=== PATIENT | female | born 1960 | race Caucasian/White ===

== ENCOUNTER 2023-02-26 13:58 | Outpatient (OUT) | payer OTHER, SELFPAY ==
--- NOTE | 2023-02-26 14:03 | XR_ITS ---
The [address] [address] Patient Name: DAVID LOZA MRN: [id number] date: 1960 Sex: F Assigned Patient Location: [facility] Current Patient Location: [facility] Accession/Order Number: [id number] Exam Date: 02/26/2023 14:15 Report Date: 02/26/2023 23:56 At the request of: JACKIE MALONE Procedure: XR hip RT min 2V EXAM: XR hip RT min 2V HISTORY: Right Hip Pain COMPARISON: None. TECHNIQUE: 2 views right hip FINDINGS: Status post right hip total arthroplasty without hardware complication. No acute fracture or aggressive osseous abnormality. Partially imaged left hip arthroplasty. Degenerative changes of the sacroiliac joints. XR/XR hip RT min 2V IMPRESSION: Status post right hip arthroplasty without hardware complication. No acute osseous abnormality. Electronically authenticated by: MARCI DIAS Date: 02/26/2023 23:56
--- NOTE | 2023-02-26 14:04 | XR_ITS ---
The [address] [address] Patient Name: DAVID LOZA MRN: [id number] date: 1960 Sex: F Assigned Patient Location: [facility] Current Patient Location: [facility] Accession/Order Number: [id number] Exam Date: 02/26/2023 14:15 Report Date: 02/26/2023 23:39 At the request of: JACKIE MALONE Procedure: XR knee RT 4V EXAM: XR knee RT 4V HISTORY: Right Knee Pain COMPARISON: None. TECHNIQUE: 4 views right knee FINDINGS: Diffuse osseous demineralization. Mild degenerative changes of the knee. No acute fracture or aggressive osseous abnormality. Small joint effusion. XR/XR knee RT 4V IMPRESSION: Mild degenerative changes of the right knee without acute osseous abnormality. Electronically authenticated by: MARCI DIAS Date: 02/26/2023 23:39
== END 2023-02-26 13:59 | disposition home or self-care (01) ==
LOC: RAD 13:58
PROVIDERS: PCP Family Medicine; Visit Provider Family Medicine
DX: M25.551 Pain in right hip (principal); M25.561 Pain in right knee
CPT/HCPCS: 73502; 73564

== ENCOUNTER 2023-04-07 17:38 | Emergency (ER) | payer OTHER, SELFPAY ==
[2023-04-07] VITALS (21 sets, daily range): BP systolic 155–156; BP diastolic 67–68; PULSE 102–117; RESP 17–62; O2SAT 98; BMI 39.8
--- NOTE | 2023-04-07 18:11 | ECG_ITS ---
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
--- NOTE | 2023-04-07 18:11 | ED.GENADUL1 ---
HPI - General Adult General Chief complaint: Chest Pain Stated complaint: Palpitations Time Seen by Provider: 04/07/23 18:06 Mode of arrival: walk-in Limitations: no limitations History of Present Illness HPI narrative: 62-year-old female presents for palpitations. It's been like this all day. Five days ago she started taking a decongestant, chlorpheniramine. No fever or vomiting. No diarrhea but she's had nasal congestion and that's why she's taking the decongestant. Related Data Allergies Allergy/AdvReac Type Severity Reaction Status Date / Time Sulfa (Sulfonamide Allergy Unknown Verified 04/07/23 17:52 Antibiotics) Review of Systems ROS Narrative A ten point review of systems is negative except as noted above. Ears, nose, mouth, and throat Reports: nasal congestion Exam Narrative Exam Narrative: Nurses note and vital signs reviewed and patient is not hypoxic. General: The patient appears well and in no apparent distress. Patient is resting comfortably on cart. Skin: Warm, dry, no pallor noted. There is no rash noted. Head: Normocephalic, atraumatic Eye: Normal conjunctiva, no drainage Ears, Nose, Mouth, and Throat: oral mucosa is moist. Nares patent. Cardiovascular: Regular Rate and Rhythm, mild tachycardia Respiratory: Patient is in no distress, no accessory muscle use, lungs are clear to auscultation, no wheezing, rales or rhonchi Back: non-tender GI: soft and nontender Musculoskeletal: The patient has no evidence of calf tenderness, no pitting edema, symmetrical pulses noted bilaterally Neurological: A&O, normal speech Psychiatric: Cooperative Constitutional Vital Signs, click to edit/add: Last Vital Signs Pulse 112 H 04/07/23 17:52 Resp 18 04/07/23 17:52 BP 155/68 H 04/07/23 17:52 Pulse Ox 98 04/07/23 17:52 O2 Del Method Room Air 04/07/23 17:52 Course Vital Signs Vital signs: Vital Signs Pulse Rate 112 H 04/07/23 17:52 Respiratory Rate 18 04/07/23 17:52 Blood Pressure 155/68 H 04/07/23 17:52 Pulse Oximetry 98 04/07/23 17:52 Oxygen Delivery Method Room Air 04/07/23 17:52 Pulse Rate 112 H 04/07/23 17:52 Respiratory Rate 18 04/07/23 17:52 Blood Pressure 155/68 H 04/07/23 17:52 Pulse Oximetry 98 04/07/23 17:52 Oxygen Delivery Method Room Air 04/07/23 17:52 Medical Decision Making MDM Narrative Medical decision making narrative: tests are ordered and the patient is signed out to Dr. Hoover at change of shift at 7 PM. I suspect her tachycardia is due to the antihistamine that she's been taking. Differential Diagnosis Differential Diagnosis: dehydration, medication side effect, acute kidney injury Discharge Plan Discharge Chief Complaint: Chest Pain Clinical Impression: Sinus tachycardia Patient Disposition: Still a Patient Referrals: Mathieu Rodriguez MD [Primary Care Provider] - 1 week
[2023-04-07] MEDS: 0.9 % SODIUM CHLORIDE 1,000 ML 1000 ML IV (18:43)
[2023-04-07 18:50] LABS: Basophils Absolute Auto 0.1 10^3/uL (0.0-0.1); Basophils Percent Auto 0.9 % (0.2-2.0); Eosinophils Absolute Auto 0.1 10^3/uL (0.0-0.7); Eosinophils Percent Auto 1.5 % (0.9-7.0); Hematocrit 40.6 % (36.0-48.0); Hemoglobin 13.8 g/dL (12.0-16.0); Immature Granulocytes Abs Auto 0.04 10^3/uL (0.00-0.03); Immature Granulocytes Pct Auto 0.5 % (0.0-0.5); Lymphocytes Absolute Auto 1.9 10^3/uL (1.2-3.8); Lymphocytes Percent Auto 22.6 % (20.5-60.0); Mean Corpuscular Hemoglobin 32.5 pg (26.7-34.0); Mean Corpuscular Volume 95.5 fL (81.0-99.0); Mean Platelet Volume 11.1 fL (9.5-13.5); Monocytes Absolute Auto 1.1 10^3/uL (0.3-0.8); Monocytes Percent Auto 12.3 % (1.7-12.0); Neutrophils Absolute Auto 5.3 10^3/uL (1.4-6.5); Neutrophils Percent Auto 62.2 % (43.0-75.0); Platelet Count 291 10^3/uL (150-450); Red Blood Count 4.25 10^6/uL (4.20-5.40); Red Cell Distribution Width 11.9 % (11.0-15.0); White Blood Count 8.6 10^3/uL (4.0-11.0)
[2023-04-07 18:56] LABS: Anion Gap 9.9; BUN Creatinine Ratio 18.2; Calcium 10.1 mg/dL (8.5-10.1); Carbon Dioxide 28.6 mmol/L (21.0-32.0); Chloride 94 mmol/L (98-107); Estimated GFR (African America >60 (>=60); Estimated GFR (Non-African Ame >60 (>=60); Glucose 125 mg/dL (74-106); Potassium 3.5 mmol/L (3.5-5.1); Sodium 129 mmol/L (136-145)
--- NOTE | 2023-04-07 19:38 | ED_ITS ---
HPI - General Adult General Chief complaint: Chest Pain Stated complaint: Palpitations Time Seen by Provider: 04/07/23 18:06 Mode of arrival: walk-in Limitations: no limitations History of Present Illness HPI narrative: This 62-year-old female was signed out to me at shift change. She presents for evaluation of 5 days of palpitations. She has been taking Coricidin HBP for nasal congestion. She is here with her sister. The patient states that she feels like she is crawling out of her skin. She denies any bebo chest pain. She states her pulse has been up as high as 117. She does not smoke. She is moderately overweight. She is taking lisinopril hydrochlorothiazide. She denies any fever. She has no shortness of breath. She has no lower 70 pain or swelling. Her sister requests that I give her something for anxiety because she is so anxious. I reviewed her EKG and labs. She does have a low sodium at 129. After a liter of fluid her pulse is still 106. I added on a troponin and it is pending at this time. She will be medicated with a dose of metoprolol 5 mg and oral Xanax. The patient also states that she has been following a low sodium diet and low-fat diet in an effort to lose some weight. I explained to her that her sodium is low at 129 and she needs to increase the sodium content foods in her diet. Her troponin is normal and after the xanax her pulse is in the low 100s and she feels more relaxed and wishes to be discharged home Related Data Allergies Allergy/AdvReac Type Severity Reaction Status Date / Time Sulfa (Sulfonamide Allergy Unknown Verified 04/07/23 17:52 Antibiotics) Exam Constitutional Vital Signs, click to edit/add: Last Vital Signs Pulse 103 H 04/07/23 20:50 Resp 26 H 04/07/23 20:50 BP 156/67 H 04/07/23 19:51 Pulse Ox 98 04/07/23 17:52 O2 Del Method Room Air 04/07/23 17:52 Course Vital Signs Vital signs: Vital Signs Pulse Rate 112 H 04/07/23 17:52 Respiratory Rate 18 04/07/23 17:52 Blood Pressure 155/68 H 04/07/23 17:52 Pulse Oximetry 98 04/07/23 17:52 Oxygen Delivery Method Room Air 04/07/23 17:52 Pulse Rate 103 H 04/07/23 20:50 Respiratory Rate 26 H 04/07/23 20:50 Blood Pressure 156/67 H 04/07/23 19:51 Pulse Oximetry 98 04/07/23 17:52 Oxygen Delivery Method Room Air 04/07/23 17:52 Medical Decision Making MDM Narrative Medical decision making narrative: See my transfer of care note in HPI Lab Data Lab results reviewed: Yes I reviewed the patient's lab results Labs: Lab Results 04/07/23 04/07/23 Range/Units 18:30 20:33 WBC 8.6 (4.0-11.0) 10^3/uL RBC 4.25 (4.20-5.40) 10^6/uL Hgb 13.8 (12.0-16.0) g/dL Hct 40.6 (36.0-48.0) % MCV 95.5 (81.0-99.0) fL MCH 32.5 (26.7-34.0) pg MCHC 34.0 (29.9-35.2) g/dL RDW 11.9 (11.0-15.0) % Plt Count 291 (150-450) 10^3/uL MPV 11.1 (9.5-13.5) fL Neut % (Auto) 62.2 (43.0-75.0) % Lymph % (Auto) 22.6 (20.5-60.0) % [place] % (Auto) 12.3 H (1.7-12.0) % Eos % (Auto) 1.5 (0.9-7.0) % Baso % (Auto) 0.9 (0.2-2.0) % Neut # (Auto) 5.3 (1.4-6.5) 10^3/uL Lymph # (Auto) 1.9 (1.2-3.8) 10^3/uL [place] # (Auto) 1.1 H (0.3-0.8) 10^3/uL Eos # (Auto) 0.1 (0.0-0.7) 10^3/uL Baso # (Auto) 0.1 (0.0-0.1) 10^3/uL Abs Immat Gran (auto) 0.04 H (0.00-0.03) 10^3/uL Imm/Tot Granulo (auto) 0.5 (0.0-0.5) % Sodium 129 L (136-145) mmol/L Potassium 3.5 (3.5-5.1) mmol/L Chloride 94 L (98-107) mmol/L Carbon Dioxide 28.6 (21.0-32.0) mmol/L Anion Gap 9.9 BUN 12.0 (7.0-18.0) mg/dL Creatinine 0.66 (0.55-1.02) mg/dL Est GFR ( Amer) >60 (>=60) Est GFR (Non-Af Amer) >60 (>=60) BUN/Creatinine Ratio 18.2 Glucose 125 H (74-106) mg/dL Calcium 10.1 (8.5-10.1) mg/dL Troponin I High Sens 8.1 (4.0-51.3) pg/mL ECG Data Attestation: I personally reviewed and interpreted this ECG as follows: (Sinus tachycardia at 115 beats for minute, normal axis, possible right atrial enlargement, no acute ST segment elevation or T-wave inversion) Discharge Plan Discharge Chief Complaint: Chest Pain Clinical Impression: Sinus tachycardia, Anxiety, Medication adverse effect, Hyponatremia Patient Disposition: Home, Self-Care Time of Disposition Decision: 21:18 Condition: Good Instructions: Hyponatremia (ED) Stand Alone Forms: Portal Instructions Referrals: Mathieu Rodriguez MD [Primary Care Provider] - 1 week Discharge Date/Time: 04/07/23 21:26
[2023-04-07] MEDS: ALPRAZOLAM 0.5 MG TABLET PO (19:51)
[2023-04-07 20:54] LABS: Troponin I High Sensitivity 8.1 pg/mL (4.0-51.3)
== END 2023-04-07 21:26 | disposition home or self-care (01) ==
PROVIDERS: Emergency Medicine; Emergency Provider Emergency Medicine; PCP Family Medicine
DX: R00.0 Tachycardia, unspecified (principal); F41.9 Anxiety disorder, unspecified; E87.1 Hypo-osmolality and hyponatremia; T50.995A Adverse effect of other drugs, medicaments and biological substances, initial encounter; Z79.899 Other long term (current) drug therapy
CPT/HCPCS: 36415; 80048; 84484; 85025; 93005; 99285

== ENCOUNTER 2025-02-13 10:46 | Emergency (ER) | payer OTHER, SELFPAY ==
[2025-02-13 10:55] VITALS: BP 182/81; PULSE 117; TEMP 36.7; O2SAT 97; BMI 39.8
--- OUTSIDE RECORDS SUMMARY | 2025-02-13 11:07 | XMS_ITS | Clinical Summary ---
Author Organization [employer] [facility] tem Address [id number] [address] [place] [address] Care Team Providers Care Stopper Setter Name Role Phone Mathieu Rodriguez MD Primary Care Provider [phone] Allergies Active Allergy Reactions Criticality Noted Date Comments Sulfa (Sulfonamide Antibiotics) 12/22/2016 As a Child, reaction unknown Medications hydroCHLOROthiaz sb (HYDRODIURIL) 25 mg tablet Take 25 mg by mouth daily. 10/15/2016 Active lidocaine (LIDODERM) 5 % Place 1 patch on the skin daily as needed. 03/17/2017 Active vitamin E 200 units capsule Take 200 Units by mouth daily. Active biotin 10 mg tablet Take 1 tablet by mouth daily. Active cholecalciferol, vitamin D3, (VITAMIN D3) 2,000 units capsule Take 2,000 Units by mouth daily. Active MULTIVIT WITH CALCIUM,IRON,MIN (MULTIPLE VITAMIN, WOMENS ORAL) Take 1 tablet by mouth daily. Active Active Problems Problem Noted Date Diagnosed Date Primary osteoarthritis of right hip 04/27/2017 History of total left hip arthroplasty 7 Primary osteoarthritis of left hip 01/05/2017 Hypertension 10/21/2016 Osteoarthritis of right hip 10/21/2016 Family History Medical History Relation Name Comments Cancer Father esophageal Heart disease Father tachycardia Diabetes Mother Heart disease Mother Ovarian cancer Mother No Known Problems Sister No Known Problems Son Relation Name Status Comments Brother 1 Alive Brother 2 Alive Father Mother Sister Alive Son Alive Social History Tobacco Use Types Packs/Day Years Used Date Smoking Tobacco: Never Smokeless Tobacco: Never Alcohol Use Standard Drinks/Week Comments Yes 1 (1 standard drink = 0.6 oz pur e alcohol) Childcare Answer Date Recorded Childcare Unknown 11/09/2018 Employment Answer Date Recorded Employment Unknown 11/09/2018 Purpose - Life Answer Date Recorded Purpose and direction in life Unknown Comments No Sex and Gender Information Value Date Recorded Sex Assigned at Not on file Legal Sex Female 11:28 AM EDT Gender Identity Not on file Sexual Orientation Not on file Last Filed Vital Signs Vital Sign Reading Time Taken Comments Blood Pressure 145/98 05/19/2017 1:26 PM EST Pulse 107 04/27/2017 4:10 PM EST Temperature 36.3 C (97.3 F) 04/27/2017 4:10 PM EST Respiratory Rate 18 04/27/2017 4:10 PM EST Oxygen Saturation 99% 04/27/2017 4:10 PM EST Inhaled Oxygen Concentration - - Weight 106.1 kg (234 lb) 05/19/2017 1:26 PM EST Height 157.5 cm (5' 2 ) 05/19/2017 1:26 PM EST Body Mass Index 42.8 05/19/2017 1:26 PM EST Plan of Treatment Health Maintenance Due Date Last Done Comments Depression Screening 1973 Tobacco Screening 1973 Adult BMI Screening 1979 DTaP,Tdap and Td Vaccines (1 - Tdap) 1980 Pap Smear 1982 Zoster (Shingles) Vaccine (1 of 2) 2011 Influenza Vaccine 01/29/2025 Medical Devices Implanted Type Area Flask Pusher Device Identifier Shelf Expiration Date Model / Serial / Lot Shl Actb 56mm Hip Ch Snpft - [id number] Implanted:Qty: 1 on 01/05/2017 by Demond Lamb MD at [facility] Orthopedic Implant Left: Hip [employer] [id number] 11/27/2026 [id number] / / [id number] Linr Actb 56mm 36mm 45d Kk - [id number] Implanted:Qty: 1 on 01/05/2017 by Demond Lamb MD at [facility] Orthopedic Implant Left: Hip [employer] [id number] 11/27/2021 [id number] / / [id number] Stm Fem 142mm 133d 11 Std Os - [id number] Implanted:Qty: 1 on 01/05/2017 by Demond Lamb MD at [facility] Orthopedic Implant Left: Hip Biomet 10/23/2025 [id number] / / [id number] Hd Fem 36mm Opt G7 Blx D Hip Rpl 650-1057 - [id number] Implanted:Qty: 1 on 01/05/2017 by Demond Lamb MD at [facility] Orthopedic Implant Left: Hip [employer]omet 06/12/2026 [id number] / / [id number] Fem Opt Std Tpr Hip Blx D Rpl 650-1066 - [id number] Implanted:Qty: 1 on 01/05/2017 by Demond Lamb MD at [facility] Orthopedic Implant Left: Hip [employer]omet 07/08/2026 [id number] / / [id number] Linr Actb 54mm 36mm 45d Jj - [id number] Implanted:Qty: 1 on 04/27/2017 by Demond Lamb MD at [facility] Orthopedic Implant Right: Hip [employer] 07/28/2021 [id number] / / [id number] Stm Fem 142mm 133d 11 Std Os - [id number] Implanted:Qty: 1 on 04/27/2017 by Demond Lamb MD at [facility] Orthopedic Implant Right: Hip [employer] 12/25/2026 [id number] / / [id number] Hd Fem 36mm Opt Shl Actb G7 Bl Rpl 650-1057 - [id number] Implanted:Qty: 1 on 04/27/2017 by Demond Lamb MD at [facility] Orthopedic Implant Right: Hip [employer] 10/30/2026 [id number] / / [id number] Fem Opt Std Tpr Hip Blx D Rpl 650-1066 - [id number] Implanted:Qty: 1 on 04/27/2017 by Demond Lamb MD at [facility] Orthopedic Implant Right: Hip [employer] 12/04/2026 650-1066 / / [id number] Shl Actb 54mm Hip Ch Snpft - [id number] Implanted:Qty: 1 on 04/27/2017 by Demond Lamb MD at [facility] Orthopedic Implant Right: Hip [employer] 03/30/2027 [id number] / / [id number] Scr Bn 35mm 6.5mm [facility] [place] Hip Rpl [id number] - [id number] Implanted:Qty: 2 on 01/05/2017 by Demond Lamb MD at [facility] Screw Left: Hip [employer] [id number] 06/30/202653-4055-716-3 5 / / [id number] Scr Bn 35mm 6.5mm [facility] [place] Hip Rpl [id number] - [id number] Implanted:Qty: 1 on 01/05/2017 by Demond Lamb MD at [facility] Screw Left: Hip [employer] [id number] 10/28/202435-0138-321-3 5 / / [id number] Scr Hip Canc Lp Ti 40mm 6.5mm - [id number] Implanted:Qty: 1 on 04/27/2017 by Demond Lamb MD at [facility] Screw Right: Hip [employer] 10/30/2026 [id number] / / [id number] Insurance [employer] Advance Directives * Full Code (Latest Code Status on File) Date Activated Date Inactivated Comments 01/05/2017 12:54 PM 01/05/2017 8:33 PM Care Teams Stopper Setter Relationship Specialty Start Date End Date Mathieu Rodriguez MD [facility] - General 10/21/16
--- OUTSIDE RECORDS SUMMARY | 2025-02-13 11:07 | XMS_ITS | Clinical Summary ---
Author Organization [facility] Address [address] [place] [address] Care Team Providers Care Green Chain Marker Name Role Phone Mathieu Rodriguez MD Primary Care Provider [phone] Allergies Active Allergy Reactions Criticality Noted Date Comments Sulfa Antibiotics 04/08/2023 Sulfadiazine 04/08/2023 Medications cholecalciferol (Vitamin D-3) 50 MCG (1999) capsule Take 2,000 Units by mouth in the morning. Active gabapentin (Neurontin) 300 MG capsuleIndication s:Herpes zoster without complication Take 1 capsule (300 mg) by mouth in the morning and 1 capsule (300 mg) in the evening and 1 capsule (300 mg) before bedtime. 90 capsule 1 3 Active hydroCHLOROthiazi de (HYDRODiuril) 25 MG tabletIndications :Benign hypertension Take 1 tablet (25 mg) by mouth in the morning. 30 tablet 11 4 Active ALPRAZolam (Xanax) 0.5 MG tabletIndications :DU (generalized anxiety disorder) Take 1 tablet (0.5 mg) by mouth 3 (three) times a day as needed for anxiety for up to 10 days 30 tablet 5 Active Active Problems Problem Noted Date Diagnosed Date Benign hypertension 04/29/2023 Assessment & Plan (04/29/2023 3:21 PM EST): BP elevated today but reports normal at home and continue to monitor. Discussed DASH diet. Primary osteoarthritis of right knee 04/29/2023 Assessment & Plan (04/29/2023 3:23 PM EST): Increased pain and use norco PRN. Will need to see ortho. Bilateral primary osteoarthritis of hip 04/29/20 Assessment & Plan (04/29/2023 3:22 PM EST): Pain stable and increase activity. Use norco PRN. Varicose veins of leg with pain, bilateral 04/29 Morbid obesity 04/29/2023 Herpes zoster without complication 04/29/2023 Assessment & Plan (04/29/2023 3:23 PM EST): Recent infection and continued pain. Continue neurontin. Warned will take weeks to resolve. DU (generalized anxiety disorder) 04/29/2023 Assessment & Plan (04/29/2023 3:22 PM EST): Increased symptoms and use xanax PRN. If symptoms persist will need daily SSRI. Acute non-recurrent sinusitis 04/29/2023 Assessment & Plan (04/29/2023 3:21 PM EST): Take antibiotics BID for 10 days. Use flonase for inflammation. Use sudafed or other decongestants as needed. Use Robitussin or Robitussin-DM for cough. Can use afrin for congestion but no longer than 3 days. Can use Mucinex to bring up phlegm. Use Motrin or Tylenol as needed for fever, aches, or pains. Increase fluid intake and rest. Should improve over next 5-7 days and if no better or worse call for re- evaluation. Family History Medical History Relation Name Comments Arrhythmia Father Cancer Father Tachycardia Father Cancer Mother Coronary artery disease Mother Diabetes Mother Heart disease Mother Hypertension Mother Varicose veins Mother Other Mother's Sister Other Sister Relation Name Status Comments Father Mother Mother's Sister Sister Social History Tobacco Use Types Packs/Day Years Used Date Smoking Tobacco: Never Smokeless Tobacco: Never Tobacco Cessation:Counseling Given: Not Answered Alcohol Use Standard Drinks/Week Comments Not Currently 0 (1 standard drink = 0.6 oz pur e alcohol) Comments Unknown Sex and Gender Information Value Date Recorded Sex Assigned at Not on file Legal Sex Female 7:08 PM EDT Gender Identity Not on file Sexual Orientation Not on file Last Filed Vital Signs Vital Sign Reading Time Taken Comments Blood Pressure 160/102 04/29/2023 2:43 PM EST Pulse 122 04/29/2023 2:43 PM EST Temperature 36.8 C (98.2 F) 04/29/2023 2:43 PM EST Respiratory Rate - - Oxygen Saturation 99% 04/29/2023 2:43 PM EST Inhaled Oxygen Concentration - - Weight 111 kg (244 lb) 04/29/2023 2:43 PM EST Height 162.6 cm (5' 4 ) 04/29/2023 2:43 PM EST Body Mass Index 41.88 04/29/2023 2:43 PM EST Plan of Treatment Health Maintenance Due Date Last Done Comments CT Colonography 1961 Colonoscopy 1961 Colorectal Cancer Screening 1961 FIT-DNA 1961 FIT 1961 FOBT 1961 Sigmoidoscopy 1961 Pap Smear 1982 Cervical Cancer Screening 1991 HPV/Cotest 1991 Mammogram 2001 Influenza Vaccine (#1) 2025 04/13/2024 Insurance JUAN MORAES Care Teams Green Chain Marker Relationship Specialty Start Date End Date Mathieu Rodriguez MD PCP - General Family Medicine 02/28/23
--- OUTSIDE RECORDS SUMMARY | 2025-02-13 11:07 | XMS_ITS | Clinical Summary ---
Author Organization [facility] Address [address] [place] [address] Care Team Providers Care Medical Education Coordinator Name Role Phone Unavailable Primary Care Provider Unavailabl e Social History Tobacco Use Types Packs/Day Years Used Date Smoking Tobacco: Never Assessed Comments Unknown Sex and Gender Information Value Date Recorded Sex Assigned at Not on file Legal Sex Female 1:28 PM EDT Gender Identity Not on file Sexual Orientation Not on file Plan of Treatment Health Maintenance Due Date Last Done Comments Anxiety Screening 1979 Depression Screening 1979 HIV Screening 1979 Hepatitis C Screening 1979 DTaP,Tdap,Td Vaccine (1 - Tdap) 1980 Cervical Cancer Screening [address] Colonography 2006 Cologuard (FIT-DNA) 2006 Colonoscopy 2006 Colorectal Cancer Screening 2006 Diabetes Screening 2006 Fecal Occult Blood 2006 Lipid Screening 2006 Sigmoidoscopy 2006 Pneumococcal Vaccine: 50+ (1 of 1 - PCV) 2011 Shingrix Vaccine (1 of 2) 2011 Influenza Vaccine (#1) 2025 RSV Vaccine (1 - 1-dose 75+ series) 2036 Insurance [employer] PPO
--- NOTE | 2025-02-13 11:09 | ED.GENADUL1 ---
HPI HPI - General Adult General Chief complaint: Wound/Laceration Stated complaint: VERICOSE VEIN ISSUE Time Seen by Provider: 02/13/25 11:03 Source: patient Mode of arrival: walk-in Limitations: no limitations History of Present Illness HPI narrative: The patient is coming to the ER because she was shaving her lower extremity and she noted some bleeding from her varicose vein that was controlled by the time she came to the ER, patient mentioned that she is nervous to be here and her blood pressure usually is elevated when she is exposed to acute medical care The patient denies any other complaints Related Data Home Medications ?Medication ?Instructions ?Recorded ?Confirmed hydrochlorothiazide 25 mg tablet mg 02/13/25 Allergies Allergy/AdvReac Type Severity Reaction Status Date / Time Sulfa (Sulfonamide Allergy Unknown unknown Verified 02/13/25 10:57 Antibiotics) Opioid HPI Opioid Management Most Recent Opioid Data: Last Pain Scale 0 Today, 11:16 Last ED Pain Assessment Today, 11:16 Review of Systems ROS Status of ROS 10 or more systems reviewed and unremarkable except as noted in history and below PFSH PFSH Social History Little interest or pleasure in doing things: not at all Feeling down, depressed, or hopeless: not at all Exam Narrative Exam Narrative: Nurses notes and vital signs reviewed and patient is not hypoxic. General: Well-appearing and in no apparent distress. Lower extremities: The patient have a obvious of varicose veins in both lower extremities and there is 2 Band-Aids placed on the apparently what used to be as bleeding source there is no acute finding on examination the patient is not bleeding Psychiatric: Cooperative and interactive. Normal mood and affect. Constitutional Vital Signs, click to edit/add: Last Vital Signs Temp 98.0 F 02/13/25 10:55 Pulse 117 H 02/13/25 10:55 Resp 20 02/13/25 10:55 BP 163/83 H 02/13/25 11:20 Pulse Ox 97 02/13/25 10:55 O2 Del Method Room Air 02/13/25 10:55 Course Vital Signs Vital signs: Vital Signs Temperature 98.0 F 02/13/25 10:55 Pulse Rate 117 H 02/13/25 10:55 Respiratory Rate 20 02/13/25 10:55 Blood Pressure 182/81 H 02/13/25 10:55 Pulse Oximetry 97 02/13/25 10:55 Oxygen Delivery Method Room Air 02/13/25 10:55 Temperature 98.0 F 02/13/25 10:55 Pulse Rate 117 H 02/13/25 10:55 Respiratory Rate 20 02/13/25 10:55 Blood Pressure 163/83 H 02/13/25 11:20 Pulse Oximetry 97 02/13/25 10:55 Oxygen Delivery Method Room Air 02/13/25 10:55 Medical Decision Making MDM Narrative Medical decision making narrative: I did explain to the patient that she need to hold pressure every time that she sees somebody because of bleeding and the patient understand that she was provided with a Hugo wrap to help with controlling the pressure in case it started again The patient also have to be cautious when she is shaving her lower extremities It was noted that the patient blood pressure elevated she mentioned that it always normal when she is at home she does not think this is an acute issue and she would just follow-up with her primary care doctor I did explain to her that she does not need to follow-up with a primary care doctor for further evaluation of blood pressure and to make sure that she have a blood pressure machine at home that she monitor The patient is to follow up with primary care physician in next 2-3 days or to return to the emergency department should any of the signs or symptoms worsen or new symptoms develop. The patient agrees with the following Diagnosis and Treatment plan and the patient will be discharged home. Discharge Plan Discharge Chief Complaint: Wound/Laceration Clinical Impression: Varicose vein of leg Patient Disposition: Home, Self-Care Time of Disposition Decision: 11:09 Condition: Good Mode of Transportation: Private Vehicle Prescriptions / Home Meds: No Action hydrochlorothiazide 25 mg tablet Print Language: Taiwanese Instructions: Venous Insufficiency (DC) Referrals: Mathieu Rodriguez MD [Primary Care Provider, Family Practice] - 1 week Discharge Date/Time: 02/13/25 11:21
[2025-02-13 11:20] VITALS: BP 163/83
--- OUTSIDE RECORDS SUMMARY | 2025-02-13 11:33 | XMS_ITS | CCD ---
Author Organization [facility] Care Team Providers Care Pellet Preparation Operator Name Role Phone MATHIEU MALONE Admitting Unavailable MATHIEU MALONE Attending Unavailable MATHIEU MALONE Admitting Unavailable MATHIEU MALONE Attending Unavailable MARIO QUEZADA V Consulting Unavailable MATHIEU MALONE Consulting Unavailable MATHIEU MALONE Unavailable Mathieu Malone MD Primary Care Provider Mathieu Malone MD Primary Care Provider [phone] Allergies Allergy Classification Reported Allergen(s) Allergy Type Date of Onset Reaction(s) Facility (2 sources) sulfADIAZINE Drug Allergy 3 [facility] (3 sources) Sulfonamides (Antibiotic) Propensity to adverse reactions 7 [facility] Medications Current Medications Medication Drug Class(es) Dates Sig (Normalized) Sig (Original) acetaminophen 325 mg / HYDROcodone bitartrate 5 mg oral tablet (1 source) Opioid Agonist Start: 06-09-2024 End: 06-24-2024 take 1 tablet by mouth four times daily as needed for pain HYDROcodone-acetamin ophen ([place]) 5-325 MG tablet Indications: Primary osteoarthritis of both hips Take 1 tablet by mouth 4 (four) times a day as needed for moderate pain or severe pain for up to 15 days 60 tablet 06/09/2024 06/24/2024 Active ALPRAZolam 0.5 mg oral tablet (4 sources) Benzodiazepine Start: 03-13-2024 End: 06-19-2024 take 1 tablet by mouth three times daily as needed for anxiety ALPRAZolam (Xanax) 0.5 MG tablet Indications: DU (generalized anxiety disorder) (CMS/HCC) Take 1 tablet (0.5 mg) by mouth 3 (three) times a day as needed for anxiety for up to 10 days 30 tablet 06/09/2024 06/19/2024 Active biotin 10 mg oral tablet (1 source) take 1 tablet by mouth once daily biotin 10 mg tablet Take 1 tablet by mouth daily. 0 Active cholecalciferol 0.05 mg oral capsule (3 sources) Vitamin D take 1 capsule by mouth in the morning cholecalciferol (Vitamin D-3) 50 MCG (2000 UT) capsule Take 2,000 Units by mouth in the morning. Active take 1 capsule by mouth once kamille ly cholecalciferol, vitamin D3, (VITAMIN D3) 2,000 units capsule Take 2,000 Units by mouth daily. 0 Active gabapentin 300 mg oral capsule (2 sources) Anti-epileptic Agent Start: 04-29-2023 take 1 capsule by mouth in the morning, then take 1 capsule by mouth in the evening, then take 1 capsule by mouth at bedtime gabapentin (Neurontin) 300 MG capsule Indications: Herpes zoster without complication Take 1 capsule (300 mg) by mouth in the morning and 1 capsule (300 mg) in the evening and 1 capsule (300 mg) before bedtime. 90 capsule 1 04/29/2023 Active hydroCHLOROthiazide 25 mg oral tablet (3 sources) Thiazide Diuretic Start: 10-15-2016 End: 06-30-2024 take 1 tablet by mouth in the morning hydroCHLOROthiazide (HYDRODiuril) 25 MG tablet Indications: Benign hypertension (CMS/HCC) Take 1 tablet (25 mg) by mouth in the morning. 30 tablet 11 07/01/2023 06/30/2024 Active lidocaine 0.05 mg/mg medicated patch (1 source) Antiarrhythmic, Amide Local Anesthetic Start: 03-17-2017 apply 1 dose transdermal route once daily as needed lidocaine (LIDODERM) 5 % Place 1 patch on the skin daily as needed. 0 03/17/2017 Active MULTIVIT WITH CALCIUM,IRON,MIN (MULTIPLE VITAMIN, WOMENS ORAL) (1 source) take 1 tablet by mouth once daily MULTIVIT WITH CALCIUM,IRON,MIN (MULTIPLE VITAMIN, WOMENS ORAL) Take 1 tablet by mouth daily. 0 Active vitamin e 90 mg oral capsule (1 source) take 1 capsule by mouth once daily vitamin E 200 units capsule Take 200 Units by mouth daily. 0 Active Problems Active Problems Problem Classification Problem Date Documented Date Episodic/Chronic Anxiety disorders (4 sources) Generalized anxiety disorder; Translations: [Generalized anxiety disorder] Onset: 04-29-2023 05-10-2024 Chronic Essential hypertension (3 sources) Benign hypertension; Translations: [Essential (primary) hypertension] Onset: 10-21-2016 04-29-2023 Chronic Osteoarthritis (9 sources) Osteoarthritis of right knee joint; Translations: [Unilateral primary osteoarthritis, right knee] Onset: 10-21-2016 04-29-2023 Chronic Other connective tissue disease (1 source) History of total replacement of left hip joint; Translations: [Presence of left artificial hip joint] Onset: 01-25-2017 01-25-2017 Chronic Other nutritional; endocrine; and metabolic disorders (2 sources) Morbid obesity; Translations: [Morbid (severe) obesity due to excess calories] Onset: 04-29-2023 04-29-2023 Chronic Past or Other Problems Problem Classification Problem Date Documented Da te Episodic/Chronic Other non-traumatic joint disorders (1 source) Pain in right knee; Translations: [Pain in joint, lower leg] 08-25-2023 Episodic Other upper respiratory infections (2 sources) Acute sinusitis; Translations: [Acute sinusitis, unspecified] Onset: 04-29-2023 04-29-2023 Episodic Varicose veins of lower extremity (6 sources) Varicose veins of bilateral lower extremities with pain; Translations: [Varicose veins of lower extremity] Onset: 12-19-2018 04-29-2023 Episodic Viral infection (2 sources) Herpes zoster without complication; Translations: [Zoster without complications] Onset: 04-29-2023 04-29-2023 Episodic Results Test Name Value Interpretation Reference Range Facil ity VEIN CENTER CONSULTATIONo n 12-19-2018 VEIN CENTER CONSULTATION Patient: DAVID PHAM Exam Date: 12/19/2018 : 1960 Gender:F Ordering : DR MATHIEU MALONE . Admission #: [id number] Family : Order #: [id number] CLICK HERE TO VIEW EXAM RADIOLOGY REPORT PROCEDURE: VEIN CENTER CONSULTATION VEIN CENTER - OFFICE VISIT INITIAL COMPARISON: None. PROGRESS NOTES: 58-year-old female who presents with a 25 year history of bilateral lower extremity varicose veins. The patient's left leg symptoms are worse than the right. The patient has varicose veins began after the of her son. The patient had and recent episode of a ruptured varicose vein along the anterior left mid redd. The patient reported that she had significant blood loss but did not go to the emergency room due to the cost, she was able to stop the bleeding with manual pressure and leg elevation. The patient describes her current pain as a 6 out of 10 with associated leg edema. The patient describes the pain as heaviness, itching and throbbing. The patient's symptoms are exacerbated by prolonged sitting or standing. The patient's symptoms are partially relieved by leg elevation, rest and over the counter Tylenol. The patient denies any signs and symptoms to suggest arterial ischemia. Family history is significant for varicose veins in her mother, sister and maternal aunt. Heart disease in her mother. Type 2 diabetes in her mother. . Medical history significant for hypertension, well controlled on hydrochlorothiazide. 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 Social occasional alcohol use. The patient has never smoked. No current illicit drug use. No history of deep venous thrombus or pulmonary embolus. See separate history and physical for medication list. No prior treatment for varicose or spider veins. Nursing notes were reviewed. I spent 50 minutes with the patient, half of that was in counseling and coordination of care. After history and physical exam I discussed at length the pathophysiology of venous hypertension and possible treatments, therapies and strategies available. We discussed at length the importance of elevating the lower extremities above the level of the heart, increased physical activity and compression stocking use. We discussed conservative treatment including bilateral thigh-high compression stockings. Surgical options of vein stripping and microphlebectomy were given. We discussed the risks and benefits at length with the patient and her sister, intravenous laser ablation, micro foam chemical ablation and injection sclerotherapy. I do not feel that she needs intravenous laser ablation of the right great saphenous vein at this time as the reflux is confined to the upper thigh. Ultrasound venous reflux study performed December 19, 2018 was discussed at length with the patient. The report demonstrates bilateral great saphenous vein reflux, left greater than right. Bilateral branch saphenous varicose veins. PHYSICAL EXAM: The right leg demonstrates mild scattered varicose veins. Moderate scattered reticular and spider veins. Multiple pre hemorrhagic veins most significant along the lateral mid calf. Mild subcutaneous edema. No active ulceration or skin discoloration. The left leg demonstrates mild scattered varicose veins. Moderate scattered reticular and spider veins. Multiple pre hemorrhagic veins most significant along the anterior mid redd. Mild subcutaneous edema. No active ulceration or skin discoloration. Both thighs, legs and feet were symmetrically warm to the touch. Good posterior tibial and dorsalis pedis pulses were present bilaterally. IMPRESSION: 1. Bilateral great saphenous vein venous insufficiency, left greater than right 2. Bilateral branch saphenous incompetent varicose veins 3. Mild bilateral lower extremity subcutaneous edema 4. Bilateral pre hemorrhagic veins with an episode of associated spontaneous hemorrhage left mid redd 5. CEAP: C3, Ep, As, Pr PLAN: 1. Endovenous laser ablation left great saphenous vein 2. Bilateral micro foam chemical ablation of branch saphenous varicose veins and pre hemorrhagic veins 3. Long-term use of bilateral thigh-high compression stockings 4. Elevated legs and increased physical activity for symptomatic relief Nurse notes, history and physical were reviewed and confirmed, see attached forms. The nurse was present throughout the physical exam and consultation Dictated by: Mario Quezada M.D. on 12/19/2018 at 15:06 Approved by: Mario Quezada M.D. on 12/19/2018 at 15:16 Normal [facility] VC VENOUS REFLUX SHAW LMTon 0 12-19-2018 VC VENOUS REFLUX SHAW LMT Patient: DAVID PHAM Exam Date: 12/19/2018 : 1960 Gender:F Ordering : DR MATHIEU MALONE . Admission #: [id number] Family : DR MARIO QUEZADA M.D. Order #: [id number] CLICK HERE TO VIEW EXAM RADIOLOGY REPORT PROCEDURE: VEIN CENTER ULTRASOUND VENOUS REFLUX BILATERAL LIMTED COMPARISON: None. INDICATIONS: Pain co-occurrent and due to varicose veins of bilateral legs I83.813 TECHNIQUE: Duplex imaging of the lower extremity to assess the deep and superficial venous system for the presence of deep or superficial venous incompetence and to document the location and severity of disease. The study includes evaluation of the great saphenous vein (GSV), anterior accessory saphenous vein (AASV) and small saphenous vein (SSV). FINDINGS: RIGHT LOWER EXTREMITY: Saphenofemoral Junction Reflux: Yes 5.8mm 1.7 sec GSV: Diam (mm) Reflux/ Time (sec) Proximal Thigh 5.5 Yes 1.8 Mid Thigh 2.6 No Distal Thigh 3.1 No Prox Calf 2.9 No Mid Calf 2.1 No Saphenopopliteal Junction Reflux: No SSV: Proximal Calf 4.2 No Mid Calf 2.2 No AASV: Not present Thrombi: No acute or chronic DVT Compressibility: Normal Flow: Normal Tech Note: Incompetent SFJ/GSV proximal segment. Competent SPJ/SSV. Varicose vein visualized proximal lateral lower leg 3.7 mm with 1.6 seconds of reflux. LEFT LOWER EXTREMITY: Saphenofemoral Junction Reflux: Yes 6.5 mm 0.5 sec GSV: Diam (mm) Reflux/Time (sec) Proximal Thigh 5.6 Yes 1.9 Mid Thigh 3.3 No Distal Thigh 5.4 Yes 0.3 Prox Calf 3.1 Yes 1.8 Mid Calf 2.5 Yes 0.5 Saphenopopliteal Junction Relux: No SSV: Proximal Calf 4.0 No Mid Calf 2.0 No AASV: Not present Thrombi: No acute or chronic DVT Compressibility: Normal Flow: Normal Tech Note: Incompetent SFJ/GSV, Competent SPJ/SSV. Patent varicose vein visualized superior to wound mid anterior lower leg measuring 3.7 mm with 0.5 seconds of reflux. CONCLUSION: 1. Bilateral incompetent great saphenous vein 2. Bilateral incompetent branch saphenous varicose veins Dictated by: Mario Quezada M.D. on 12/19/2018 at 14:17 Approved by: Mario Quezada M.D. on 12/19/2018 at 14:19 [facility] Encounters Encounter Date Encounter Type Care Provider Facility Start: 06-09-2024 End: 06-09-2024 Refill Mathieu Malone MD Work Phone: [facility] Comment on above: DU (generalized anx iety disorder) ([facility]); Primary osteoarthritis of both hips Start: 05-10-2024 End: 05-10-2024 Refmagdy Malone MD Work Phone: [facility] Comment on above: DU (generalized anx iety disorder) (CMS/HCC) Start: 08-25-2023 Orders Only Cordelia Caba CMA [facility] Comment on above: Pain in both knees, unspecified chronicity (Primary Dx) Start: 04-29-2023 End: 04-29-2023 ambulatory MATHIEU MALONE Not Available Start: 12-19-2018 End: 12-20-2018 Patient encounter procedure MATHIEU MALONE Facility:[facility] Start: 11-10-2018 Patient encounter procedure MATHIEU MALONE Facility:[facility] Plan of Treatment Date Care Activity Detail Author Start: 01-30-2024 Influenza vaccination Influenza Vacc ine (#1) [facility] Start: 08-30-2023 End: 08-30-2023 Patient encounter procedure 08/30/2023 1:10 PM EDT Office Visit [facility] [address] [place], [place] [address] [place] [address] Demond Lamb MD [address] [place] [address] [facility] Start: 08-25-2023 End: 08-24-2024 XR Knee - left 3 Views X-ray knee left 3 views Imaging Routine Pain in both knees, unspecified chronicity Expected: 08/25/2023, Expires: 08/24/2024 [facility] Work Phone: Comment on above: Expected: 08/25/2023 , Expires: 08/24/2024 Start: 08-25-2023 End: 08-24-2024 XR Knee - right 3 Views X-ray knee right 3 views Imaging Routine Pain in both knees, unspecified chronicity Expected: 08/25/2023, Expires: 08/24/2024 [facility] Comment on above: Expected: 08/25/2023 , Expires: 08/24/2024 Start: 01-29-2023 Influenza vaccination Influenza Vacc ine [facility] Start: 2011 Administration of varicella zoster vaccine Zoster (Shingles) Vaccine (1 of 2) [facility] Start: 2001 Screening for malign ant neoplasm of breast Mammogram [facility] Start: 1991 Screening for malign ant neoplasm of cervix [facility] Start: 1982 Screening for malign ant neoplasm of cervix Pap Smear [facility] Start: 1980 DTaP,Tdap and Td Vaccines (1 - Tdap) DTaP,Tdap and Td Vaccines (1 - Tdap) [facility] Start: 1979 Adult BMI Screening Adult BMI Screen ing [facility] Start: 1973 Depression Screening Depression Scre ening [facility] Start: 1973 Tobacco Screening Tobacco Screening [facility] Start: 1960 Screening for malign ant neoplasm of colon [facility] Payers Date Payer Category Payer Unknown [employer] [id number] 2023-Present [phone] [place] [id number] 2022 Private Health Insurance ERNST MORAES [id number] 2022 Unknown [id number] 1960 Unknown [id number] 1960 Unknown [id number] 1960 Unknown [id number] Unknown [id number] Social History Date Type Detail Facility Start: 03-29-2017 End: 04-29-2023 Tobacco smoking status NHIS Never smoked tobacco [facility] Start: 03-29-2017 End: 04-29-2023 Tobacco use and exposure Smokeless tobacco non-user [facility] Start: 04-29-2023 Alcoholic beverage intake Ex-drinker (finding) [facility] Start: 07-11-2020 End: 04-29-2023 [facility] Start: 07-11-2020 End: 04-29-2023 Tobacco use panel [facility] Start: 1960 Sex assigned at Not on file P [facility] Start: 05-19-2017 Alcohol intake Current drinke r of alcohol (finding) [facility] Childcare Unknown [facility] Procedure Code Equipment Code Equipment Origin al Text Equipment Identifier Dates Slv Fem Opt Std Tpr Hip Blx D Rpl [id number] - [id number] Start: 01-05-2017 Slv Fem Opt Std Tpr Hip Blx D Rpl [id number] - [id number] Start: 04-27-2017 Scr Bn 35mm 6.5m m [facility] Hip Rpl [id number] - [id number] FDA Start: 01-05-2017 Scr Hip Canc Lp Ti 40mm 6.5mm - [id number] Start: 04-27-2017 Evaluation note Note Date & Type Note Facility Evaluation note Diagnosis Herpes zoster without complication- Primary Benign hypertension (CMS/HCC) Essential hypertension, benign DU (generalized anxiety disorder) ([facility]/HCC) Generalized anxiety disorder Primary osteoarthritis of right knee Bilateral primary osteoarthritis of hip Acute non-recurrent sinusitis, unspecified location Morbid obesity (CMS/HCC) Morbid obesity DU (generalized anxiety disorder) (CMS/HCC) Generalized anxiety disorder documented in this encounter [facility] Evaluation note Note Date & Type Note Facility Evaluation note Diagnosis Herpes zoster without complication- Primary Benign hypertension (CMS/HCC) Essential hypertension, benign DU (generalized anxiety disorder) (CMS/HCC) Generalized anxiety disorder Primary osteoarthritis of right knee Bilateral primary osteoarthritis of hip Acute non-recurrent sinusitis, unspecified location Morbid obesity (CMS/HCC) Morbid obesity DU (generalized anxiety disorder) (CMS/HCC) Generalized anxiety disorder Primary osteoarthritis of both hips documented in this encounter [facility] Evaluation note Note Date & Type Note Facility Evaluation note Diagnosis Pain in both knees, unspecified chronicity- Primary documented in this encounter [facility] Instructions Note Date & Type Note Facility Instructions Not on filedocumented in this en counter [facility] Summary Purpose Family History No Family History Records FoundNo Family History Records Found Advance Directives Latest Code Status on File Code Status Date Activated Date Inactivated Comments Full Code 01/05/2017 12:54 PM 01/05/2017 8:33 PM Additional Source Comments INFORMATION SOURCE (unrecogn ized section and content) DATE CREATED AUTHOR 10/31/2019 [facility] DATE CREATED AUTHOR AUTHOR'S ORGANIZ ATION 05/02/2023 [facility] EPIC Reason for Visit (unrecogniz ed section and content) Reason Onset Date Comments Med Refill 05/10/2024 Reason Onset Date Comments Med Refill 06/09/2024 Care Teams (unrecognized sec tion and content) Pellet Preparation Operator Relationship Specialty Start Date End Date Mathieu Malone MD [address] [place] [id number] PCP - General Family Medicine 02/28/23 Pellet Preparation Operator Relationship Specialty Start Date End Date Mathieu Malone MD [address] [place] [phone] PCP - General Family Medicine 02/28/23 Pellet Preparation Operator Relationship Specialty Start Date End Date Mathieu Malone MD [address] [place] [address] PCP - General 10/21/16 FOR RECORDS PERTAINING TO PATIENTS WHO ARE OR HAVE BEEN ENROLLED IN A CHEMICAL DEPENDENCY/SUBSTANCEABUSE PROGRAM, SOME INFORMATION MAY BE OMITTED. This clinical summary was aggregated from multiple sources. Caution should be exercised in using it in the provision of clinical care. This summary normalizes information from multiple sources, and as a consequence, information in this document may materially change the coding, format and clinical context of patient data. In addition, data may be omitted in some cases. CLINICAL DECISIONS SHOULD BE BASED ON THE PRIMARY CLINICAL RECORDS. [facility]. provides no warranty or guarantee of the accuracy or completeness of information in this document.
== END 2025-02-13 11:21 | disposition home or self-care (01) ==
PROVIDERS: Emergency Provider Emergency Medicine; PCP Family Medicine
DX: I83.893 Varicose veins of bilateral lower extremities with other complications (principal)
CPT/HCPCS: 99281